=== PATIENT | male | born 1970 | race Caucasian/White ===

== ENCOUNTER 2021-04-17 14:21 | Emergency (ER) | payer MEDICAID, SELFPAY | END 2021-04-17 15:23 | disposition left against medical advice (07) | LOC: HO.ED 15:00 | PROVIDERS: Emergency Provider Emergency Medicine | DX: S06.9X9A Unspecified intracranial injury with loss of consciousness of unspecified duration, initial encounter (principal); X58.XXXA Exposure to other specified factors, initial encounter; Y93.9 Activity, unspecified; Y92.9 Unspecified place or not applicable; Y99.9 Unspecified external cause status ==

== ENCOUNTER 2025-07-11 10:43 | Outpatient (REF) | payer MEDICAID, SELFPAY ==
--- OUTSIDE RECORDS SUMMARY | 2025-07-11 09:40 | XMS_ITS | Encounter Summary ---
Author Organization [employer] Address [address] [facility] [address] [place] [address] Care Team Providers Care Inspector [employer] Name Role Phone Rachelle Humphrey MD Primary Care Provider + Reason for Referral * Consultation (Urgent) - Pending Review Specialty Diagnoses / Procedures Referred By Contparul t Referred To Contact General Surgery Diagnoses Rectal bleeding Rashaad Alvarado MD [address] [place] [address] Phone: tel: fax: Referral ID Status Reason Start Date Expiration Date Visits Requested Visits Authorized [id number] Pending Review Specialty Services Required 07/11/2025 07/11/2026 1 1 Encounter Details Date Type Department Care Team (Late st Contact Info) Description 07/11/2025 9:40 AM EDT Office Visit [facility] [address] [place] [id number] Rectal bleeding (Primary Dx); Elevated blood pressure reading in office without diagnosis of hypertension Social History Tobacco Use Types Packs/Day Years Used Date Smoking Tobacco: Every Day Cigarettes Smokeless Tobacco: Never Tobacco Cessation:Ready to Q uit: Not Asked; Counseling Given: Not Answered Alcohol Use Standard Drinks/Week Comments Never 0 (1 standard drink = 0.6 oz pur e alcohol) Depression Answer Date Recorded Patient Health Questionnaire-9 Score 3 05/03/2025 Patient Health Questionnaire-9 Score 3 05/03/2025 Last PHQ-9: Questionnaire Data Not on file 0 05/03/2025 Housing Stability Answer Date Recorded What is your housing situation today? I have demetrice ahn 04/25/[address] you li ve. Do you have problems with any of the following? None of the above 04/25/2025 Food Insecurity Answer Date Recorded Within the past 12 months, y ou worried that your food would run out before you got money to buy more: Never True 04/25/2025 Within the past 12 months,th e food you bought just didn't last and you didn't have enough money to get more: Never True 05/2025 Transportation Answer Date Recorded In the past 12 months, has l ack of transportation kept you from medical appts, meetings, work or from getting things needed for daily living? No 04/25/2025 Utilities Answer Date Recorded In the past 12 months, has t he electric, gas, oil or water company threatened to shut off services in your home? No 04/25/2025 Depression Answer Date Recorded Patient Health Questionnaire-2 Score 0 05/03/2025 Internet Access Answer Date Recorded Internet Access Q1 No 05/03/2025 Internet Access Q2 I do not want or need it 04/18 Sex and Gender Information Value Date Recorded Sex Assigned at Male 08/18/2022 10:35 AM EDT Legal Sex Male 10:35 AM EDT Gender Identity Male 08/18/2022 10:35 AM EDT Sexual Orientation Straight 08/18/2022 10 :35 AM EDT documented as of this encounter Last Filed Vital Signs Vital Sign Reading Time Taken Comments Blood Pressure 156/86 07/11/2025 9:35 AM EDT Pulse 61 07/11/2025 9:35 AM EDT Temperature 36.7 C (98 F) 07/11/2025 9:35 AM EDT Respiratory Rate 18 07/11/2025 9:35 AM EDT Oxygen Saturation 96% 07/11/2025 9:35 AM EDT Inhaled Oxygen Concentration - - Weight 78 kg (172 lb) 07/11/2025 9:35 AM EDT Height - - Body Mass Index 26.15 05/03/2025 9:26 AM EDT documented in this encounter Plan of Treatment Upcoming Encounters Date Type Department Care Team (Late st Contact Info) Description 09/11/2025 1:15 PM EST Office Visit [facility] [address] [place] [address] Rachelle Humphrey MD [address] [place] [address] Scheduled Orders Name Type Priority Associated Diagnoses Orde r Schedule Hepatitis B Core Antibody, Total Lab Routine Rectal bleeding Expected: 07/11/2025 (Approximate), Expires: 07/11/2026 Hepatitis B Surface Antibody, Qualitative Lab Routine Rectal bleeding Expected: 07/11/2025 (Approximate), Expires: 07/11/2026 Hepatitis B surface antigen, EIA Lab Routine Rectal bleeding Expected: 07/11/2025 (Approximate), Expires: 07/11/2026 Hepatitis C Antibody with Reflex to HCV, RNA, Quantitative, Real-Time PCR Lab Routine Rectal bleeding Expected: 07/11/2025 (Approximate), Expires: 07/11/2026 Scheduled Referrals Name Type Priority Associated Diagnoses Orde r Schedule Referral to General Surgery Outpatient Referral Urgent Rectal bleeding Expected: 07/11/2025 (Approximate), Expires: 07/11/2026 documented as of this encounter Goals Goal Patient Goal Type Associated Problems Recent Progress Patient-Stated? Author Increase coping skills to promote long-term recovery and improve ability to perform daily activities General Jacki Lewis RN documented as of this encounter Visit Diagnoses Diagnosis Rectal bleeding- Primary Hemorrhage of rectum and anus Elevated blood pressure reading in office without diagnosis of hypertension documented in this encounter Additional Health Concerns Assessment Noted Time PHQ-9 Depression Total Score: 3 05/03/20 25 10:02 AM EDT documented as of this encounter Care Teams Inspector [employer] Relationship Specialty Start Date End Date Rachelle Humphrey MD [address] [place] [phone] PCP - General Internal Medicine 05/03/25 documented as of this encounter
--- OUTSIDE RECORDS SUMMARY | 2025-07-11 13:12 | XMS_ITS | Encounter Summary ---
Author Organization [employer] Address [address] [facility] 7t [place] [address] Care Team Providers Care Education Professional Name Role Phone Rachelle Humphrey MD Primary Care Provider + Reason for Visit * Reason Comments Recovery Supports Encounter Details Date Type Department Care Team (Late st Contact Info) Description 07/06/2025 Patient Outreach [facility] [address] [place] [address] Kit Thomas Recovery Supports Social History Tobacco Use Types Packs/Day Years Used Date Smoking Tobacco: Every Day Cigarettes Smokeless Tobacco: Never Alcohol Use Standard Drinks/Week Comments Never 0 [...] AM EDT documented as of this encounter Progress Notes * Kit Thomas - 07/06/2025 2:28 PM EDT I met with Edwin today. Setting: in person at [facility] Recovery Wellness Goals worked on: Social Stability Action taken/next steps: Attended alcohol and drug free activity Additional comments: Kit Thomas documented in this encounter Plan of Treatment Upcoming Encounters Date Type Department Care Team (Late st Contact Info) Description 09/11/2025 1:15 PM EST Office Visit [facility] [address] [place] [address] Rachelle Humphrey MD [address] [place] [phone] documented as of this encounter Goals Goal Patient Goal Type Associated Problems Recent Progress Patient-Stated? Author Increase coping skills to promote long-term recovery and improve ability to perform daily activities General No Jacki Rain, RN documented as of this encounter Visit Diagnoses Not on filedocumented in this encounter Additional Health Concerns Assessment Noted Time PHQ-9 Depression Total Score: 3 05/03/20 10:02 AM EDT documented as of this encounter Care Teams Education Professional Relationship Specialty Start Date End Date Rachelle Humphrey MD [address] [place] [phone] PCP - General Internal Medicine 05/03/25 documented as of this encounter
--- OUTSIDE RECORDS SUMMARY | 2025-07-11 13:12 | XMS_ITS | Patient Health Record ---
Author Organization [facility] Address [address] [place] [address] Care Team Providers Care Peoplesoft Analyst Name Role Phone [employer] - DO NOT USE, Mail Pick-up Primary Car e Provider Unavailable Sadie Goodwin Unavailable [phone] Reason For Referral No Information Encounters Encounter Location Date Provider Diagnosis [facility] [address] [place], [place] [phone] 10/28/2024 Sadie Goodwin Plan Of Treatment No Information Insurance Providers Payer Name Payer Address Payer Phone Subscriber Number Group Number Insured Name Patient Relationship to Insured Coverage Start Date Coverage End Date [facility] [employer] [address] [place] [phone] [id number] Edwin Rivera Self - patient is the insured 5 5
--- OUTSIDE RECORDS SUMMARY | 2025-07-11 13:12 | XMS_ITS | Clinical Summary ---
Author Organization [facility] Address [address] [place] [address] Phone Care Team Providers Care Donkey Engine Firer/Fireman Name Role Phone Physician, No Pcp Primary Care Provider Unavaila ble Allergies No known active allergies Medications No known medications Active Problems No known active problems Social History Tobacco Use Types Packs/Day Years Used Date Smoking Tobacco: Never Assessed Sex and Gender Information Value Date Recorded Sex Assigned at Male 01/09/2025 10:05 AM EDT Legal Sex Male 5:27 AM EST Gender Identity Male 01/09/2025 10:05 AM EDT Sexual Orientation Choose not to disclose 2024 10:05 AM EDT Obstetrics History Last Filed Vital Signs Vital Sign Reading Time Taken Comments Blood Pressure 157/83 01/09/2025 9:30 AM EDT Pulse 65 01/09/2025 9:30 AM EDT Temperature 36.6 C (97.9 F) 01/09/2025 9:30 AM EDT Respiratory Rate 18 01/09/2025 9:30 AM EDT Oxygen Saturation 96% 01/09/2025 9:30 AM EDT Inhaled Oxygen Concentration - - Weight 72.6 kg (160 lb) 01/09/2025 9:29 AM EDT Height 175.3 cm (5' 9 ) 01/09/2025 9:29 AM EDT Body Mass Index 23.63 01/09/2025 9:29 AM EDT Plan of Treatment Health Maintenance Due Date Last Done Comments Hepatitis B Vaccines (2 of 3 - 19+ 3-dose series) 06/17/2019 05/20/2019 Pneumococcal Vaccine: 50+ Years (1 of 1 - PCV) 2022 02/18/2009 Zoster Vaccines (1 of 2) 2022 Colorectal Cancer Screening: Colonoscopy 08/24/2024 HIV Screening 08/24/2024 Social Influencers of Health Screening 08/24/2024 Depression Screening 10/19/2024 COVID-19 Vaccine (1 - 2023-2 5 season) 2025 Influenza Vaccine (#1) 2025 09/22/2011 Cholesterol Screening (Lipid Panel) 03/18/2029 03/18/2024 DTaP,Tdap,and Td Vaccines (2 - Td or Tdap) 10/20/2034 10/20/2024 RSV Immunization Adult Patients (1 - 1-dose 75+ series) 2047 Hepatitis A Vaccines Aged Out 03/11/2019, 03/08/2018 No longer eligible based on patient's age to complete this topic Hepatitis C Screening Completed 03/18/2024 HIB Vaccines Aged Out No longer eligi ble based on patient's age to complete this topic HPV Vaccines Aged Out No longer eligi ble based on patient's age to complete this topic IPV Vaccines Aged Out No longer eligi ble based on patient's age to complete this topic MMR Vaccines Aged Out No longer eligi ble based on patient's age to complete this topic Meningococcal ACWY Vaccine Aged Out N o longer eligible based on patient's age to complete this topic Meningococcal B Vaccine Aged Out No l onger eligible based on patient's age to complete this topic RSV Immunization Patients Under 20 months Aged Out No longer eligible b ased on patient's age to complete this topic Varicella Vaccines Aged Out No longer eligible based on patient's age to complete this topic Insurance [facility] MEDICAID ADVANTAGE Care Teams Donkey Engine Firer/Fireman Relationship Specialty Start Date End Date Physician, No Pcp PCP - General 08/24/24
--- OUTSIDE RECORDS SUMMARY | 2025-07-11 13:12 | XMS_ITS | Encounter Summary ---
Author Organization [employer] Address [address] [facility] 7t [place] [address] Care Team Providers Care Audio Visual Secretary Name Role Phone Rachelle Humphrey MD Primary Care Provider + Encounter Details Date Type Department Care Team (Latest Contact Info) Description 07/11/2025 Travel Social History Tobacco Use Types Packs/Day Years [...] is your housing situation today? I have demetriceashley ahn 04/25/[address] you [...] AM EDT documented as of this encounter Plan of Treatment Upcoming Encounters Date Type Department Care Team (Late st Contact Info) Description 09/11/2025 1:15 PM EST Office Visit [facility] [address] [place] [address] Rachelle Humphrey MD [address] [place] [address] documented as of this encounter Goals Goal Patient Goal Type Associated Problems Recent Progress Patient-Stated? Author Increase coping skills to promote long-term recovery and improve ability to perform daily activities General Jacki Lewis, RN documented as of this encounter Visit Diagnoses Not on filedocumented in this encounter Additional Health Concerns Assessment Noted Time PHQ-9 Depression Total Score: 3 05/03/20 25 10:02 AM EDT documented as of this encounter Care Teams Audio Visual Secretary Relationship Specialty Start Date End Date Rachelle Humphrey MD [address] [place] [phone] PCP - General Internal Medicine 05/03/25 documented as of this encounter
--- OUTSIDE RECORDS SUMMARY | 2025-07-11 13:12 | XMS_ITS | Clinical Summary ---
Author Organization [employer] Address [address] [facility] [place] [address] Care Team Providers Care Laborer [employer] Name Role Phone Rachelle Humphrey MD Primary Care Provider + Allergies No known active allergies Medications * This document contains information received from the source organization and may not represent a complete record from that organization. liver oil-zinc oxide (Desitin) 40 % ointment Apply topically if needed for irritation. 56 g 5 Active hydrOXYzine HCl (Atarax) 25 MG tabletIndicatio ns:Adjustment insomnia Take 1 tablet (25 mg) by mouth if needed at bedtime for anxiety. 60 tablet 5 Active triamcinolone (Kenalog) 0.1 % creamIndication s:Irritant contact dermatitis due to detergent Apply topically 2 times daily. Use sparingly to affected area for up to 2 weeks. 45 g 1 5 Active Blood Pressure kit 1 each 2 times daily. 1 kit 5 07/11/20 26 Active Active Problems Problem Noted Date Diagnosed Date Erectile dysfunction 05/03/2025 Assessment & Plan (05/03/2025 3:31 PM EDT): Most likely related to previous history of drug use, unclear if he has hypogonadism or any other additional risk factor for cardiovascular disease. Order labs and follow-up with me in 3 to 4 weeks, congratulated him for being sober from substance use. Encounter for colorectal cancer screening 2024 Assessment & Plan (05/03/2025 3:30 PM EDT): We discussed about colorectal cancer screening options including Cologuard and colonoscopy Agreed to be refer to GI for colonoscopy Decreased vision 05/03/2025 Assessment & Plan (05/03/2025 3:30 PM EDT): Referred to eye clinic Adjustment insomnia 05/03/2025 Assessment & Plan (05/03/2025 3:33 PM EDT): Continue hydroxyzine as per [facility] team, will continue follow-up with his part of the program Patient to bring med list at next visit, he will let me know if he needs referral to psychiatry or he will be discharged with mental health prescriber referral. He feels safe at home and is able to reach out for safety, he has crisis number. Advised to stay away from substance use Moderate opioid use disorder, in early remission 04/26/2025 Assessment & Plan (05/03/2025 3:32 PM EDT): IVDU for many years, sober for 9 months, on methadone 45 mg/day. I congratulated him for being sober and for his strength to continue to recover. Continue groups and support through [facility] methadone clinic + [facility] programs, he will follow-up closely with his case management director regarding transfer to a [facility] Current smoker 03/18/2024 Overview (05/03/2025): Discussed options to quit with patient face to face and counseling provided, see AVS. Assessment & Plan (05/03/2025 3:33 PM EDT): Advised to quit smoking, declined nicotine replacement therapy at this time, will follow-up next visit. Order lipid profile Tinea pedis of both feet 03/18/2024 Assessment & Plan (05/03/2025 3:32 PM EDT): Clotrimazole cream twice daily + zinc oxide ointment Follow-up with me in 1 month Encounters * This document contains information received from the source organization and may not represent a complete record from that organization. Date Type Department Care Team Description 07/11/2025 9:40 AM EDT Office Visit [facility] [address] [phone] Rectal bleeding (Primary Dx); Elevated blood pressure reading in office without diagnosis of hypertension 07/11/2025 Travel 07/06/[address] [facility] [address] [place] [address] Kit Thomas [facility] 07/05/2025 9:00 AM EDT Office Visit [address] [address] Jamal Calabrese MD Opioid dependence, uncomplicated (CMS/HCC) (Primary Dx) 07/05/2025 Travel 07/04/2025 Patient Outreach [address] [address] Kody Awan [facility] 07/04/[address] [address] Rachelle Humphrey MD chart prep 06/28/2025 10:40 AM EDT Office Visit [facility] [address] [place] [id number] Deepa Reyes MD Irritant contact dermatitis due to detergent (Primary Dx) 06/28/2025 9:00 AM EDT Office Visit [address] [address] Jamal Calabrese MD Opioid dependence, uncomplicated (CMS/HCC) (Primary Dx) 06/28/2025 Travel 06/22/2025 Patient Outreach [address] [address] Oumou Boyd [facility] 06/16/2025 Patient Outreach [address] [address] Kit [facility] 06/15/2025 Patient Outreach [address] [address] Kit Thomas [facility] 06/14/2025 9:00 AM EDT Clinical Support [address] [address] Jacki Rain RN Opioid dependence, uncomplicated (CMS/HCC) 06/14/2025 Travel 06/12/2025 Patient Outreach [address] [address] Oumou Boyd [facility] 06/09/[address] [facility] [address] [place] [address] Kit Thomas [facility] 06/07/2025 9:00 AM EDT Office Visit [facility] [address] [place] [address] Jamal Calabrese MD Opioid dependence, uncomplicated (CMS/HCC) (Primary Dx) 06/07/2025 Travel 06/06/[address] [facility] [address] [place] [address] Kody Awan RC [facility] 06/05/[address] [facility] [address] [place] [address] Kit Thomas [facility] 06/05/2025 Patient Outreach [facility] [address] [place] [address] Oumou Boyd [facility] 05/29/[address] [facility] [address] [place] [address] Oumou Boyd [facility] 05/26/[address] [facility] [address] [place] [address] Altaf Florian [facility] 05/26/[address] [facility] [address] [place] [address] Altaf Florian [facility] 05/25/[address] [facility] [address] [place] [address] Kit Thomas [facility] 05/23/[address] [facility] [address] [place] [address] Kody Awan RC [facility] 05/22/[address] [facility] [address] [place] [address] Oumou Boyd [facility] 05/19/[address] [facility] [address] [place] [address] Evan Cobian 05/18/[address] [facility] [address] [place] [address] Kit Thomas [facility] 05/11/[address] [facility] [address] [place] [address] Kit Thomas [facility] 05/11/[address] [facility] [address] [place] [address] Rachelle Humphrey MD Adjustment insomnia 05/09/2025 Patient Outreach [address] [address] Kody Awan [facility] 05/03/2025 10:00 AM EDT Office Visit [facility] [address] [place] [address] Jamal Calabrese MD Opioid dependence, uncomplicated (CMS/HCC) (Primary Dx) 05/03/2025 9:30 AM EDT Office Visit [address] [address] Rachelle Humphrey MD Erectile dysfunction, unspecified erectile dysfunction type (Primary Dx); Tinea pedis of both feet; Current smoker; Moderate opioid use disorder, in early remission (CMS/HCC); Encounter for colorectal cancer screening; Decreased vision; Adjustment insomnia 05/03/2025 Travel 05/02/[address] [facility] [address] [place] [address] Kody Awan [facility] 05/02/[address] [address] Rachelle Humphrey MD Chart Prep 05/01/2025 Patient Outreach [address] [address] Oumou Boyd [facility] 04/28/[address] [facility] [address] [place] [address] Evan Cobian [facility] 04/27/2025 Patient Outreach [address] [address] Oumou Boyd [facility] 04/26/2025 10:00 AM EDT Office Visit [address] [address] Jamal Calabrese MD Opioid dependence, uncomplicated (CMS/HCC) (Primary Dx) 04/26/2025 Travel 04/25/2025 Patient Outreach [facility] [address] [place] [address] Kody Awan [facility] 04/25/2025 Patient Outreach [facility] [address] [place] [address] Rachelle Humphrey MD Pre-visit Planning (SDOH screening negative and tobacco screening negative) 04/20/2025 Patient Outreach [address] [address] Altaf Florian [facility] 04/18/2025 Patient Outreach [address] [address] Altaf Florian RC [facility] 04/17/2025 Patient Outreach [address] [address] Oumou Boyd [facility] 04/13/2025 Patient Outreach [address] [address] Kody Awan [facility] 04/11/2025 Patient Outreach [address] [address] Evan Cobian [facility] 04/10/2025 Patient Outreach [address] [address] Kit Thomas [facility] from Last 3 Months Social History Tobacco Use Types Packs/Day Years [...] Orientation Straight 08/18/2022 10 :35 AM EDT Last Filed Vital Signs Vital Sign Reading Time Taken Comments Blood Pressure 156/86 07/11/2025 9:35 AM EDT Pulse 61 07/11/2025 9:35 AM EDT Temperature 36.7 C (98 F) 07/11/2025 9:35 AM EDT Respiratory Rate 18 07/11/2025 9:35 AM EDT Oxygen Saturation 96% 07/11/2025 9:35 AM EDT Inhaled Oxygen Concentration - - Weight 78 kg (172 lb) 07/11/2025 9:35 AM EDT Height 172.7 cm (5' 8 ) 05/03/2025 9:26 AM EDT Body Mass Index 26.15 05/03/2025 9:26 AM EDT Plan of Treatment Upcoming Encounters Date Type Department Care Team (Late st Contact Info) Description 09/11/2025 1:15 PM EST Office Visit [facility] [address] [place], [place] [phone] Rachelle Humphrey MD [address] [place] [address] Health Maintenance Due Date Last Done Comments CT Colonography 1972 Colonoscopy 1972 Colorectal Cancer Screening 1972 FIT DNA/Cologuard 1972 FIT 1972 FOBT 1972 Lipid Panel 1972 Sigmoidoscopy 1972 Hepatitis C Screening 1990 Pneumococcal Vaccine: 50+ Years (1 of 2 - PCV) 1991 02/18/2009 Hepatitis B Vaccines (2 of 3 - 19+ 3-dose series) 06/17/2019 05/20/2019 Zoster Vaccines (1 of 2) 2022 COVID-19 Vaccine (1 - 2023-2 5 season) 2025 Influenza Vaccine (#1) 2025 09/22/2011 Alcohol/Substance Use Screening 05/03/2026 05/03/2025 Depression Screening 05/03/2026 05/03/2025, 05/03/2025 Disability Screening 05/03/2026 05/03/2025 SDOH Screening 05/03/2026 05/03/2025 Tobacco Screening 07/11/2026 07/11/2025 DTaP/Tdap/Td Vaccines (2 - T d or Tdap) 10/20/2034 10/20/2024 RSV Patients and Patients Aged 60 years or older (1 - 1-dose 75+ series) 2047 Hepatitis A Vaccines Aged Out 03/11/2019, 03/08/2018 No longer eligible based on patient's age to complete this topic HIV Screening Completed 03/18/2024, 03/18/2024 HIB Vaccines Aged Out No longer [...] patient's age to complete this topic Meningococcal Vaccine Aged Out No yovanny osiris eligible based on patient's age to complete this topic RSV under 20 months Aged Out No longe r eligible based on patient's age to complete this topic Rotavirus Vaccines Aged Out No longer eligible based on patient's age to complete this topic Goals Goal Patient Goal Type Associated Problems Recent Progress Patient-Stated? Author Increase coping skills to promote long-term recovery and improve ability to perform daily activities General No Briseyda, Jacki, RN Insurance [facility] [employer] Care Teams Laborer [employer] Relationship Specialty Start Date End Date Rachelle Humphrey MD [address] [place] [id number] PCP - General Internal Medicine 05/03/25
[2025-07-11 13:14] LABS: MANUAL DIFF FLAG NO
[2025-07-11 13:20] LABS: Hematocrit 43.7 % (42.0-52.0); Hemoglobin 14.1 g/dl (14.0-18.0); Imm Gran Abs Auto 0.00 X10*3/uL (0.00-0.03); Imm Gran Pct Auto 0.0 % (0.0-0.4); Lymphocytes Absolute Auto 1.7 X10*3/uL (1.2-4.9); Mean Corpuscular HGB Conc 32.3 g/dl (31.0-36.0); Mean Corpuscular Hemoglobin 26.9 pg (27.0-33.0); Mean Corpuscular Volume 83.4 fL (80.0-98.0); NRBC Abs Auto 0.000 X10*3/uL (0.0-0.012); NRBC Pct Auto 0.0 /100WBC (0.0-0.2); Platelet Count 137 X10*3/uL (160-400); Red Blood Count 5.24 X10*6/uL (4.60-5.80); White Blood Count 4.8 X10*3/uL (4.8-10.8)
[2025-07-11 13:57] LABS: Alanine Aminotransferase 17 U/L (0-40); Albumin Level 4.2 g/dL (3.5-5.0); Alkaline Phosphatase 68 U/L (39-117); Anion Gap 8 (12-20); Aspartate Amino Transferase 34 U/L (5-37); Blood Urea Nitrogen 9 mg/dL (9-16); Calcium 8.7 mg/dL (8.4-10.2); Carbon Dioxide 28 mmol/L (22-29); Chloride 108 mmol/L (96-108); Cholesterol 170 mg/dL (<200); Estimated Glomerular Filt Rate > 60; HDL Cholesterol 31 mg/dL (>40); Potassium 4.4 mmol/L (3.3-5.1); Sodium 140 mmol/L (135-145); Total Protein 8.0 g/dL (6.5-8.0); Triglycerides 116 mg/dL (<150)
[2025-07-11 14:26] LABS: HIV Num 1 0.07 S/CO (0.00-0.99); Reflex LDLD? No
[2025-07-11 14:28] LABS: Syphilis Screen Nonreactive (Nonreactive)
[2025-07-11 14:35] LABS: HBS Num1 983.21 mIU/mL (0-7.99); HBc Num1 0.26 S/CO (0.00-0.79); HBsAGNum1 0.36 S/CO (0.00-0.99); Hepatitis B Surface Antigen Negative (Negative); ~HepC Num1 11.71 S/CO (0.00-0.79); ~Hepatitis B Surface Antibody REACTIVE (Nonreactive); ~Hepatitis C Antibody Reactive (Nonreactive)
[2025-07-14 06:23] LABS: HCV Log PCR <1.18 NOT DETECTED Log IU/mL (NOT DETECTED); HepC Viral Load <15 NOT DETECTED IU/mL (NOT DETECTED)
[2025-07-19 16:43] LABS: Testosterone, Free 55.4 pg/mL (35.0-155.0)
== END 2025-07-11 10:44 | disposition home or self-care (01) ==
LOC: HO.HHCL 10:43
PROVIDERS: PCP Internal Medicine; Referring Provider Emergency Medicine; Visit Provider Internal Medicine
DX: Z11.59 Encounter for screening for other viral diseases (principal); Z11.3 Encounter for screening for infections with a predominantly sexual mode of transmission; K62.5 Hemorrhage of anus and rectum; B35.3 Tinea pedis; H54.7 Unspecified visual loss; N52.9 Male erectile dysfunction, unspecified; F17.200 Nicotine dependence, unspecified, uncomplicated
CPT/HCPCS: 36415; 80053; 80061; 82306; 84402; 84403; 84443; 85025; 86481; 86704; 86706; 86780; 86803; 87340; 87389; 87522